=== PATIENT | female | born 1990 | race Caucasian/White ===

== ENCOUNTER 2016-07-13 16:41 | Emergency (ER) | payer OTHER ==
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
[2016-07-13 19:03] VITALS: BP 130/78
== END 2016-07-13 18:29 | disposition home or self-care (01) ==
LOC: ER 16:41
DX: F07.81 Postconcussional syndrome (principal); R51 Headache; R42 Dizziness and giddiness
CPT/HCPCS: 70450; 99284

== ENCOUNTER → 2018-03-30 | Outpatient (CLI) | payer SELFPAY ==
--- NOTE | 2018-03-30 13:37 | RADIOLOGY REPORT (SQ) ---
EXAM DESCRIPTION: U/S [id number] TRNABD 1GES W/ODOP COMPLETED DATE/TIME: 03/30/2018 1:24 pm REASON FOR STUDY: Z34.02 ENCNTR FOR SUPRVSN OF NORMAL FIRST PREG, FIRST TRIMESTER Z34.02 ENCNTR FOR SUPRVSN OF NORMAL FIRST PREG, SECOND TRIME COMPARISON: None. TECHNIQUE: Transabdominal static and realtime grayscale images acquired of the pelvis. Additional se lected spectral and color Doppler images recorded. All images stored on PACs. bHCG: Not available CLINICAL DATES: Not available LIMITATIONS: None. FINDINGS: FETUS: Single Living intrauterine . ULTRASOUND EGA: 9 weeks 3 days ULTRASOUND JESI: 10/30/2018 EFW: Not applicable less than 20 weeks. CRL: 2.6 cm FHR: 182 beats per minute. SURVEY: Too early to assess. AMNIOTIC FLUID: Adequate amount. PLACENTA: Not yet developed due to early gestation. SUBCHORIONIC BLEED: No SIZE OF BLEED: Not applicable. UTERUS: No masses. No anomalies. Uterus is 11 x 10 x 8 cm in size CERVICAL LENGTH: 2.9 cm Closed. RIGHT ADNEXA: Normal ovary with normal vascular flow. 3.5 x 1.8 x 1.6 cm in size. No adnexal free fluid. No adnexal masses. LEFT ADNEXA: Normal ovary with normal vascular flow. 4.7 x 3.2 x 2.5 cm in size No adnexal free fluid. No adnexal masses. FREE FLUID: None. OTHER: No other significant finding. IMPRESSION: LIVING INTRAUTERINE . EGA 9 weeks 3 days Trimester of : First - 0 to 13 weeks. TECHNICAL DOCUMENTATION: JOB ID: [id number] [email or web address]- All Rights Reserved rev-08/22 Reading location - IP/workstation name: [facility]
== END ==
LOC: RAD 14:04
PROVIDERS: ATTEND Nurse Practitioner
DX: Z34.02 Encounter for supervision of normal first pregnancy, second trimester (principal)
CPT/HCPCS: 76801

== ENCOUNTER → 2018-07-20 | Outpatient (CLI) | payer SELFPAY ==
--- NOTE | 2018-07-20 15:47 | RADIOLOGY REPORT (SQ) ---
EXAM DESCRIPTION: U/S OB 14+ TRNABD 1GES W/O DOP COMPLETED DATE/TIME: 07/20/2018 3:07 pm REASON FOR STUDY: Z34.02 ENCNTR FOR SUPRVSN OF NORMAL FIRST PREG, SECOND TRIMESTER Z34.02 ENCNTR FO R SUPRVSN OF NORMAL FIRST PREG, SECOND TRIME 25 weeks 3 days. COMPARISON: 03/30/2018 TECHNIQUE: Static and Dynamic grayscale imaging performed of gravid uterus using transabdominal appr oac. Additional selected color Doppler and spectral images recorded. All stored on PACS. LIMITATIONS: None. FINDINGS: FETUSES SEEN:1 EGA: 25 weeks 3 days. Calculated using BPD,FL,HC,AC documented on images. No discrepancy with clinic al dates. JESI: 10/30/2018. EFW: 788 grams PERCENTILE: 43rd YUNG: 15.4 cm PLACENTA: Anterior. GRADE: I PRESENTATION: Cephalic. ANATOMY: HEART RATE: 145 beats per minute. FOUR CHAMBER HEART: Visualized. THREE VESSEL CORD: Yes. CORD INSERTION: Visualized. KIDNEYS AND BLADDER: Visualized. Appear normal. STOMACH: Visualized. Appears normal. SPINE: Normal as visualized. BRAIN AND LATERAL VENTRICLES: Visualized. Appear normal. OTHER: No other significant finding. MATERNAL ADNEXA: Maternal ovaries not visualized. CERVICAL LENGTH: 6.4 cm. Closed. OTHER: No other significant finding. IMPRESSION: LIVING INTRAUTERINE . ESTIMATED GESTATIONAL AGE 25 weeks 3 days. NO VISUALIZED ANOMALIES. Trimester of : Second trimester - 13 weeks 1 day to 27 weeks 6 days. TECHNICAL DOCUMENTATION: JOB ID: [id number] [email or web address]- All Rights Reserved Reading location - IP/workstation name: [email or web address]
== END ==
LOC: RAD 14:23
PROVIDERS: ATTEND Midwife
DX: Z34.02 Encounter for supervision of normal first pregnancy, second trimester (principal)
CPT/HCPCS: 76805

== ENCOUNTER 2018-09-14 20:09 | Outpatient (CLI) | payer MEDICAID ==
[2018-09-14 20:59] LABS: APPEARANCE,URINE SLIGHTLY-CLOUDY; BILIRUBIN,URINE NEGATIVE (NEGATIVE); COLOR,URINE YELLOW; GLUCOSE, URINE NEGATIVE (NEGATIVE); KETONES,URINE NEGATIVE (NEGATIVE); LEUKOCYTE ESTERASE,URINE TRACE (NEGATIVE); NITRITE,URINE NEGATIVE (NEGATIVE); PROTEIN,URINE NEGATIVE (NEGATIVE); URINE SPECIFIC GRAVITY 1.012; UROBILINOGEN,URINE NEGATIVE mg/dL (<2.0)
[2018-09-14 21:13] LABS: URINE AMPHETAMINES SCREEN NEGATIVE; URINE BARBITURATES SCREEN NEGATIVE; URINE BENZODIAZEPINES SCREEN NEGATIVE; URINE COCAINE SCREEN NEGATIVE; URINE MARIJUANA (THC) SCREEN NEGATIVE; URINE METHADONE SCREEN NEGATIVE; URINE PHENCYCLIDINE SCREEN NEGATIVE
== END 2018-09-14 22:02 | disposition home or self-care (01) ==
LOC: LC 20:09
PROVIDERS: ATTEND Obstetrics & Gynecology Gynecology
PROC: 4A1HXCZ Monitoring of Products of Conception, Cardiac Rate, External Approach (ICD-10-PCS; principal; 2018-09-14)
DX: O26.893 Other specified pregnancy related conditions, third trimester (principal); R10.9 Unspecified abdominal pain; Z3A.33 33 weeks gestation of pregnancy
CPT/HCPCS: 80307; 81001

== ENCOUNTER 2018-09-23 20:11 | Outpatient (CLI) | payer MEDICAID ==
[2018-09-23 21:29] LABS: APPEARANCE,URINE TURBID; BILIRUBIN,URINE NEGATIVE (NEGATIVE); COLOR,URINE YELLOW; GLUCOSE, URINE NEGATIVE (NEGATIVE); KETONES,URINE 80 mg/dL (NEGATIVE); LEUKOCYTE ESTERASE,URINE LARGE (NEGATIVE); NITRITE,URINE NEGATIVE (NEGATIVE); PROTEIN,URINE NEGATIVE (NEGATIVE); URINE SPECIFIC GRAVITY 1.013; UROBILINOGEN,URINE NEGATIVE mg/dL (<2.0)
[2018-09-23 21:35] LABS: URINE AMPHETAMINES SCREEN NEGATIVE; URINE BARBITURATES SCREEN NEGATIVE; URINE BENZODIAZEPINES SCREEN NEGATIVE; URINE COCAINE SCREEN NEGATIVE; URINE MARIJUANA (THC) SCREEN NEGATIVE; URINE METHADONE SCREEN NEGATIVE; URINE PHENCYCLIDINE SCREEN NEGATIVE
[2018-09-23] MEDS ORDERED: HYDROXYZINE PAMOATE 50 MG CAPSULE ONE (21:50)
[2018-09-23] MEDS ORDERED: HYDROXYZINE PAMOATE 50 MG CAPSULE PO ONE (21:55)
[2018-09-23] MEDS ORDERED: MAG HYDROX/AL HYDROX/SIMETH SUSP 30 ML UDCUP ONE (22:19)
--- NOTE | 2018-09-24 02:31 | Non Stress Test Report ---
Non Stress Test Datetime Report Generated by CPN: 09/24/2018 02:31 DEMOGRAPHIC EGA NST: 34.5 INDICATION Indication for Study: Other Indication for Study (NST) Other: LC MONITORING Monitor Explained: Monitor Explained; Test Explained; Patient Verbalized Understanding; Other Monitor Explained Other: Pt mother Time on Monitor: 09/23/2018 20:40 Time off Monitor: 09/23/2018 23:10 NST Duration: 150 NST INTERVENTIONS NST Interventions: PO Hydration Physician Notified NST: Linares (Annotations: Data stored by N on behalf of user) BABY A: [id number] BABY A Movement : Present Contraction Frequency : irreg FHR Baseline : 140 Accelerations : 15X15 Decelerations : None Variability : Moderate 6-25bpm NST Review: Meets Criteria for Reactive NST NST Review and Verified By : Teresa Greene RN NST Results: Reactive NST REPORT Report Trigger: Send Report
== END 2018-09-23 23:15 | disposition home or self-care (01) ==
LOC: LC 20:11
PROVIDERS: ATTEND Student in an Organized Health Care Education/Training Program
PROC: 4A1HXCZ Monitoring of Products of Conception, Cardiac Rate, External Approach (ICD-10-PCS; principal; 2018-09-23)
DX: O47.03 False labor before 37 completed weeks of gestation, third trimester (principal); Z3A.34 34 weeks gestation of pregnancy
CPT/HCPCS: 59025; 81001; 80307; J3490 ×2

== ENCOUNTER 2018-10-14 23:17 | Outpatient (CLI) | payer MEDICAID ==
[2018-10-15 00:01] LABS: APPEARANCE,URINE SLIGHTLY-CLOUDY; BILIRUBIN,URINE NEGATIVE (NEGATIVE); COLOR,URINE YELLOW; GLUCOSE, URINE NEGATIVE (NEGATIVE); KETONES,URINE NEGATIVE (NEGATIVE); LEUKOCYTE ESTERASE,URINE TRACE (NEGATIVE); NITRITE,URINE NEGATIVE (NEGATIVE); PROTEIN,URINE NEGATIVE (NEGATIVE); URINE SPECIFIC GRAVITY 1.012; UROBILINOGEN,URINE NEGATIVE mg/dL (<2.0)
[2018-10-15 00:19] LABS: URINE AMPHETAMINES SCREEN NEGATIVE; URINE BARBITURATES SCREEN NEGATIVE; URINE BENZODIAZEPINES SCREEN NEGATIVE; URINE COCAINE SCREEN NEGATIVE; URINE MARIJUANA (THC) SCREEN NEGATIVE; URINE METHADONE SCREEN NEGATIVE; URINE PHENCYCLIDINE SCREEN NEGATIVE
--- NOTE | 2018-10-15 00:37 | Non Stress Test Report ---
Non Stress Test Datetime Report Generated by CPN: 10/15/2018 00:37 DEMOGRAPHIC EGA NST: 37.5 INDICATION Indication for Study: Ordered by Provider VITAL SIGNS Temperature - NST: 97.7 Pulse - NST: 60 RESP - NST: 17 NBPSYS NST: 154 NBPDIA NST: 76 MONITORING Monitor Explained: Monitor Explained; Test Explained; Patient Verbalized Understanding Time on Monitor: 10/14/2018 23:40 Time off Monitor: 10/15/2018 00:23 NST Duration: 43 NST INTERVENTIONS NST Interventions: PO Hydration Physician Notified NST: Dr. Linares BABY A: [id number] BABY A Movement : Present Contraction Frequency : x 2 FHR Baseline : 135 Accelerations : 15X15 Decelerations : None Variability : Moderate 6-25bpm NST Review: Meets Criteria for Reactive NST NST Review and Verified By : Cindy Aguilera RN NST Results: Reactive NST REPORT Report Trigger: Send Report
== END 2018-10-15 00:33 | disposition home or self-care (01) ==
LOC: LC 23:17
PROVIDERS: ATTEND Student in an Organized Health Care Education/Training Program
PROC: 4A1HXCZ Monitoring of Products of Conception, Cardiac Rate, External Approach (ICD-10-PCS; principal; 2018-10-14)
DX: O47.1 False labor at or after 37 completed weeks of gestation (principal); Z3A.37 37 weeks gestation of pregnancy
CPT/HCPCS: 59025; 80307; 81005; 84112

== ENCOUNTER 2018-10-27 16:32 | Inpatient (IN) | payer MEDICAID ==
--- NOTE | 2018-10-27 17:50 | Non Stress Test Report ---
Non Stress Test Datetime Report Generated by CPN: 10/27/2018 17:50 DEMOGRAPHIC EGA NST: 39.4 INDICATION Indication for Study: Ordered by Provider VITAL SIGNS Temperature - NST: 98.0 MONITORING Monitor Explained: Monitor Explained; Test Explained; Patient Verbalized Understanding Time on Monitor: 10/27/2018 16:42 Time off Monitor: 10/27/2018 17:13 NST Duration: 31 NST INTERVENTIONS NST Interventions: IV Fluids; Reposition Patient Physician Notified NST: Dr. younger BABY A: [id number] BABY A Movement : Present Contraction Frequency : x2 FHR Baseline : 145 Accelerations : 15X15 Decelerations : Variable Variability : Moderate 6-25bpm NST Review: Meets Criteria for Reactive NST NST Review and Verified By : Blanca Wilson RN NSAbram Results: Reactive NST REPORT Report Trigger: Send Report
[2018-10-27 17:58] LABS: APPEARANCE,URINE SLIGHTLY-CLOUDY; BILIRUBIN,URINE NEGATIVE (NEGATIVE); COLOR,URINE YELLOW; GLUCOSE, URINE 50 mg/dL (NEGATIVE); KETONES,URINE NEGATIVE (NEGATIVE); LEUKOCYTE ESTERASE,URINE SMALL (NEGATIVE); NITRITE,URINE NEGATIVE (NEGATIVE); PROTEIN,URINE 30 mg/dL (NEGATIVE); URINE SPECIFIC GRAVITY 1.025; UROBILINOGEN,URINE NEGATIVE mg/dL (<2.0)
[2018-10-27 18:24] LABS: HEMATOCRIT 32.9 % (36.0-47.0); HEMOGLOBIN 10.5 g/dL (12.0-15.5); MEAN CORPUSCULAR HEMOGLOBIN 22.9 pg (27.0-33.4); MEAN CORPUSCULAR VOLUME 71 fl (80-97); PLATELET COUNT 193 10^3/uL (150-450); RED BLOOD COUNT 4.61 10^6/uL (3.72-5.28); RED CELL DISTRIBUTION WIDTH 17.9 % (11.5-14.0); WHITE BLOOD COUNT 6.7 10^3/uL (4.0-10.5)
[2018-10-27 18:45] LABS: ALANINE AMINOTRANSFERASE 22 U/L (9-52); ALBUMIN 2.9 g/dL (3.5-5.0); ALKALINE PHOSPHATASE 311 U/L (38-126); ANION GAP 8 (5-19); ASPARTATE AMINO TRANSFERASE 26 U/L (14-36); BILIRUBIN,DIRECT 0.3 mg/dL (0.0-0.4); BILIRUBIN,TOTAL 0.4 mg/dL (0.2-1.3); BLOOD UREA NITROGEN 11 mg/dL (7-20); CALCIUM 9.3 mg/dL (8.4-10.2); CARBON DIOXIDE 22 mmol/L (22-30); CHLORIDE 107 mmol/L (98-107); GLUCOSE 96 mg/dL (75-110); POTASSIUM 3.9 mmol/L (3.6-5.0); TOTAL PROTEIN 5.4 g/dL (6.3-8.2); URIC ACID 4.8 mg/dL (2.5-6.2)
[2018-10-27 18:48] LABS: UR PRO/CREAT RATIO RESULT 0.1 mg/mg (0.0-0.2); URINE CREATININE 173.8 mg/dL (16-327)
[2018-10-27] MEDS ORDERED: RINGERS SOLUTION,LACTATED 1,000 ML IV PRN ×2 (18:50→20:21)
[2018-10-27] MEDS ORDERED: NIFEDIPINE 30 MG TAB.ER.24 PO ONE ×2 (18:52→18:53)
[2018-10-27 19:01] LABS: URINE AMPHETAMINES SCREEN NEGATIVE; URINE BARBITURATES SCREEN NEGATIVE; URINE BENZODIAZEPINES SCREEN NEGATIVE; URINE COCAINE SCREEN NEGATIVE; URINE MARIJUANA (THC) SCREEN NEGATIVE; URINE METHADONE SCREEN NEGATIVE; URINE PHENCYCLIDINE SCREEN NEGATIVE
[2018-10-27] MEDS ORDERED: RINGERS SOLUTION,LACTATED 1,000 ML IV ONE (20:10)
[2018-10-27] MEDS ORDERED: OXYTOCIN/NORMAL SALINE 20 UNIT/1,000 ML RTUINJ ONE (20:14)
[2018-10-27] MEDS ORDERED: LIDOCAINE 1% INJ-PF (10 MG/ML) 30 ML SDV ONE (20:14)
[2018-10-27] MEDS ORDERED: MISOPROSTOL 0.2 MG TABLET ONE (20:14)
[2018-10-27] MEDS ORDERED: OXYTOCIN 10 UNIT/ML VIAL ONE (20:14)
--- NOTE | 2018-10-27 20:18 | Admission Physical ---
Datetime Report Generated by CPN: 10/27/2018 20:17 CURRENT ADMISSION Indication for Induction: Gestational HTN Indication for Induction- Other: Labile elevated BP Admit Impression : Term, Intrauterine ; No Active Labor; Induction of Labor Admit Plan: Admit to Unit; Initiate Labor Induction Protocol ALLERGIES Medication Allergies: Yes Medication Allergies: Penicillins (09/14/2018) Latex: No Latex Allergies OBSTETRICAL HISTORY EDC: 10/30/2018 00:00 : 1 Para: 0 Term: 0 : 0 IAB: 0 Ectopic: 0 Livin Cesareans: 0 VBACs: 0 Multiple Births: 0 Gestational Diabetes: No Rh Sensitization: No Incompetent Cervix: No SEA: No Infertility: No ART Treatment: No Uterine Anomaly: No IUGR: No Hx Previous C/S: No Macrosomia: No Hx Loss/Stillborn: No PIH: No Hx : No Placenta Previa/Abruption: No Depression/PP Depression: No PTL/PROM: No Post Hemorrhage: No Current Procedures: Ultrasound Obstetrical History Comments: 200mg Prometrium for cervical lenght 2.2cm SEE RECORDS Alcohol: No Marijuana : No Cocaine: No Other Illicit Drugs: No Cigarettes: Never Smoker. [id number] MEDICAL HISTORY Diabetes: No Blood Transfusion: No Pulmonary Disease (Asthma, TB): No Breast Disease: No Hypertension: No Sagger Maker Surgery: No Heart Disease: No Hosp/Surgery: No Autoimmune Disorder: No Anesthetic Complications: No Kidney Disease: No Abnormal Pap Smear: No Neuro/Epilepsy: No Psychiatric Disorders: No Other Medical Diseases: No Hepatitis/Liver Disease: No Significant Family History: No Varicosities/Phlebitis: No Trauma/Violence : No Thyroid Dysfunction: No INFECTIOUS HISTORY Gonorrhea: No Genital Herpes: No Chlamydia: No Tuberculosis: No Syphilis: No Hepatitis: No HIV/AIDS Exposure: No Rash or Viral Illness: No HPV: No PHYSICAL EXAM General: Normal HEENT: Normal Neurologic: Normal Thyroid: Normal Heart: Normal Lungs: Normal Breast: Normal Back: Normal Abdomen: Normal Genitourinary Exam: Normal Extremities: Normal DTRs: Normal Pelvic Type: Adequate Vital Signs: Reviewed VAGINAL EXAM Dilatation: 1 Effacement: 50 Station: -3 Contraction Comments: irregular MEMBRANES Membranes: Intact FETUS A Monitoring: External US FHR- Baseline: 130s Variability: Moderate 6-25bpm Accelerations: 15X15 FHR Category: Category I Admit Comment: Pt here today for a PIH work up secondary to elevated BP in the office. Her pre-e work up was negative, therefore she has a dx of GHTN. I gave her procardia and she still has some elevated BPs. I will keep the pt for IOL. Her cervix is 1 cm, therefpre I will place a cervidil for cervical ripening. FHTs reactive. PLANS FOR LABOR AND DELIVERY Labor and Delivery: None Pain Management: Natural Feeding Preference: Both Benefit of Breast Feed Discussed: Yes Circumcision: Yes INFORMED CONSENT Signature: with User ID: [email or web address]
[2018-10-27] MEDS ORDERED: MAG HYDROX/AL HYDROX/SIMETH SUSP 30 ML UDCUP PO PRN (20:21)
[2018-10-27] MEDS ORDERED: DINOPROSTONE 10 MG VAGINAL INSERT.SR PV ONE (20:21)
[2018-10-27] MEDS ORDERED: OXYTOCIN/NORMAL SALINE 20 UNIT/1,000 ML RTUINJ IV PRN (20:21)
[2018-10-27] MEDS ORDERED: RINGERS SOLUTION,LACTATED 300 ML IV ONE (20:21)
[2018-10-27] MEDS ORDERED: ACETAMINOPHEN 325 MG TABLET PO PRN (20:21)
[2018-10-27] MEDS ORDERED: ZOLPIDEM TARTRATE 5 MG TABLET PO PRN (20:21)
[2018-10-27] MEDS ORDERED: DINOPROSTONE 10 MG VAGINAL INSERT.SR ONE (20:44)
[2018-10-27 21:10] LABS: ABSOLUTE EOSINOPHILS # (AUTO) 0.1 10^3/uL (0.0-0.6); ABSOLUTE LYMPHOCYTES (AUTO) 1.5 10^3/uL (0.5-4.7); ABSOLUTE MONOCYTES (AUTO) 0.6 10^3/uL (0.1-1.4); ABSOLUTE NEUT (AUTO) 4.5 10^3/uL (1.7-8.2); BASOPHILS % (AUTO) 0.6 % (0-2); EOSINOPHILS % (AUTO) 0.8 % (0-6); LYMPHOCYTES % (AUTO) 22.3 % (13-45); MONOCYTES % (AUTO) 8.9 % (3-13); SEGMENTED NEUTROPHILS % (AUTO) 67.4 % (42-78); TOTAL CELLS COUNTED % (AUTO) 100 %
[2018-10-27] MEDS ORDERED: ACETAMINOPHEN 325 MG TABLET ONE (22:46)
[2018-10-27] MEDS ORDERED: ZOLPIDEM TARTRATE 5 MG TABLET ONE (22:47)
[2018-10-27] MEDS ORDERED: ZOLPIDEM TARTRATE 5 MG TABLET PO ONE (23:15)
[2018-10-27] MEDS ORDERED: ACETAMINOPHEN 325 MG TABLET PO ONE (23:15)
[2018-10-28] MEDS ORDERED: PROMETHAZINE HCL INJ 25 MG/1 ML VIAL ONE (02:35)
[2018-10-28] MEDS ORDERED: NALBUPHINE HCL INJ 10 MG/1 ML AMPULE ONE (02:35)
[2018-10-28] MEDS ORDERED: PROMETHAZINE HCL INJ 25 MG/1 ML VIAL IV ONE (03:00)
[2018-10-28] MEDS ORDERED: NALBUPHINE HCL INJ 10 MG/1 ML AMPULE INJ ONE (03:00)
[2018-10-28] MEDS ORDERED: LIDOCAINE 1% INJ-PF (10 MG/ML) 30 ML SDV ONE (07:52)
[2018-10-28] MEDS ORDERED: BENZOCAINE/MENTHOL AEROSOL SPRAY 56 ML TOP PRN (08:26)
[2018-10-28] MEDS ORDERED: ACETAMINOPHEN WITH CODEINE #3 TABLET PO PRN (08:26)
[2018-10-28] MEDS ORDERED: ZOLPIDEM TARTRATE 5 MG TABLET PO PRN (08:26)
[2018-10-28] MEDS ORDERED: OXYTOCIN/NORMAL SALINE 20 UNIT/1,000 ML RTUINJ IV PRN (08:26)
[2018-10-28] MEDS ORDERED: DIPH/PERTUSS(ACELL)/TETANUS VAC/PF 0.5 ML SYR (>=10YO) IM PRN (08:26)
[2018-10-28] MEDS ORDERED: DIBUCAINE 1% OINTMENT 56 GM TP PRN (08:26)
--- NOTE | 2018-10-28 09:12 | Warning Signs in Babies ---
VOD Warning Signs Datetime Report Generated by [facility]: 10/28/2018 09:12 VOD#608 -Warning Signs in Babies: Viewed with Parent(s)/Family (09/14/2018 20:16:Briseyda Bravo RN)
--- NOTE | 2018-10-28 09:13 | Warning Signs in Babies ---
VOD Warning Signs Datetime Report Generated by [facility]: 10/28/2018 09:13 VOD#608 -Warning Signs in Babies: Viewed with Parent(s)/Family (10/28/2018 09:12:Briseyda Bravo RN)
[2018-10-28] MEDS ORDERED: PRENATAL VITAMIN W DHA CAPSULE PO ONE (10:05)
[2018-10-28] MEDS ORDERED: DOCUSATE SODIUM 100 MG CAPSULE ONE (10:05)
[2018-10-28] MEDS ORDERED: SENNOSIDES/DOCUSATE 8.6-50 MG 1 EACH TABLET ONE (10:05)
[2018-10-28] MEDS ORDERED: FERROUS SULFATE 325 MG TABLET PO ONE (10:06)
[2018-10-28] MEDS: DOCUSATE SODIUM 100 MG CAPSULE PO SCH ×2 (10:07→18:20)
[2018-10-28] MEDS: FERROUS SULFATE 325 MG TABLET PO SCH ×2 (10:07→18:20)
[2018-10-28] MEDS: PRENATAL VITAMIN W DHA CAPSULE PO SCH (10:07)
[2018-10-28] MEDS: SENNOSIDES/DOCUSATE 8.6-50 MG 1 EACH TABLET PO SCH (10:07)
[2018-10-28] MEDS ORDERED: ACETAMINOPHEN WITH CODEINE #3 TABLET ONE (10:10)
[2018-10-28] MEDS: ACETAMINOPHEN WITH CODEINE #3 TABLET PO PRN ×2 (10:11→18:19)
[2018-10-28] MEDS ORDERED: IRON SUCROSE COMPLEX INJ/PF 100 MG/5 ML SDV IV ONE (12:00)
[2018-10-28] MEDS ORDERED: IBUPROFEN 800 MG TABLET ONE (14:17)
[2018-10-28] MEDS: IBUPROFEN 800 MG TABLET PO SCH ×2 (14:18→21:03)
--- NOTE | 2018-10-28 17:28 | Delivery Summary ---
Del Sum A-C Datetime Report Generated by CPN: 10/28/2018 17:28 DELIVERY PERSONNEL DELIVERY PERSONNEL: [id number] Delivery Doctor:: Candice Martinez MD Labor and Delivery Nurse:: Mohsen Narayanan RNcreative art director Nurse:: Briseyda Bravo RN Nursery Nurse:: Brigid Little RN Nursery Nurse:: MERRICK Bowen/GUEST SERVICES REPRESENTATIVE: Chandni Lombardo CST Additional Personnel: : Dr. Karol Linares MATERNAL INFORMATION Delivery Anesthesia: Pudendal Medications During Delivery: lidocaine 1% Medications After Delivery: Pitocin Bolus-Please Comment Meds After Delivery Comment: pitocin 20U/1000 ml NS Estimated Blood Loss (ml): 300 Delivery QBL: 300 Maternal Complications: None Provider Comments: of a viable male at 0747 w/ BESS w/ a nuchal cord x 1 presentation; APGARS 8, 9; 2nd degree midline vaginal and right periurethral lacs LABOR SUMMARY EDC: 10/30/2018 00:00 No. Babies in Womb: 1 Attempted: No Labor Anesthesia: None LABOR INFORMATION Reason for Induction: Gestational Hypertension Onset of Labor: 10/28/2018 06:55 Complete Dilatation: 10/28/2018 07:26 Cervical Ripening Agents: Cervidil Group B Beta Strep: negative Antibiotics # of Doses: n/a Antibiotics Time of Last Dose: n/a Name of Antibiotic Given: n/a Steroids Given: None Reason Steroids Not Administered: Not Applicable MEMBRANES Membranes Rupture Method: Artificial Rupture of Membranes: 10/28/2018 07:04 Length of Rupture (hr): 0.72 Amniotic Fluid Color: Clear Amniotic Fluid Amount: Small Amniotic Fluid Odor: None STAGES OF LABOR Stage 1 hr: 0 Stage 1 min: 31 Stage 2 hr: 0 Stage 2 min: 21 Stage 3 hr: 0 Stage 3 min: 5 Total Time in Labor hr: 0 Total Time in Labor min: 57 VAGINAL DELIVERY Episiotomy: None Laceration #1: Vaginal Laceration Extension #1: Second Degree Laceration #2: Periurethral Laceration Extension #2: Second Degree Laceration Repair: Yes Laceration Repair Note: 2nd Degree Midline vaginal and 2nd degree Right periurethral lacs repaired with 2-0 Vicryl Sponge Count Correct: Yes Sharps Count Correct: Yes CSECTION DELIVERY Primary Indication: N/A Secondary Indication: N/A CSection Incidence: N/A Labor: N/A Elective: N/A CSection Incision: N/A Uterine Closure: N/A BABY A INFORMATION Infant Delivery Date/Time: 10/28/2018 07:47 Method of Delivery: Vaginal Born in Route : No : N/A Forceps: N/A Vacuum Extraction: N/A Shoulder Dystocia : No PRESENTATION/POSITION BABY A Presentation: Cephalic Cephalic Presentation: Vertex Vertex Position: Right Occipital Anterior Breech Presentation: N/A PLACENTA INFORMATION BABY A Placenta Delivery Time : 10/28/2018 07:52 Placenta Method of Delivery: Spontaneous Placenta Status: Delivered SCORES BABY A Heart Rate 1 min: >100 bpm Resp Effort 1 min: Good Cry Reflex Irritability 1 min: Cough or Sneeze or Pulls Away Muscle Tone 1 min: Active Motion Color 1 min: Blue/Pale Resuscitation Effort 1 min: Tactile Stimulation SCORE 1 MIN: 8 Heart Rate 5 min: >100 bpm Resp Effort 5 min: Good Cry Reflex Irritability 5 min: Cough or Sneeze or Pulls Away Muscle Tone 5 min: Active Motion Color 5 min: Body [place], Extremities Blue Resuscitation Effort 5 min: Tactile Stimulation SCORE 5 MIN: 9 INFORMATION BABY A Gestational Age at Delivery: 39.5 Gestational Status: Full Term- 39- 40.6 Weeks Infant Outcome : Liveborn Condition : Stable Infant Sex: Male IDENTIFICATION BABY A Infant Verification Date/Time: 10/28/2018 08:21 ID Band Number: [id number] Mother's Name Verified: Yes Infant RN Verifying : Blanca Kumar RN and Keron Narayanan RN WEIGHT/LENGTH BABY A Infant Birthweight (gm): 3892 Weight (lb): 8 Weight (oz): 9 Length (in): 21.50 Length (cm): 54.61 CORD INFORMATION BABY A No. Cord Vessels: 3 Nuchal Cord : Around Neck x1, Loose Cord Blood Taken: Yes-For Storage (Mom's Blood type +) Infant Suction: Mouth ASSESSMENT BABY A Infant Complications: None Physical Findings at Delivery: Within Normal Limits Infant Respirations: Appears Normal Skin to Skin: Yes Tearer/ALS Called : No Infant Care By: J. Field, RN Transferred To: Remains with Mother BABY B INFORMATION : N/A SIGNATURES Signature: with User ID: [email or web address]
[2018-10-28] MEDS: NIFEDIPINE 30 MG TAB.ER.24 PO SCH (18:19)
[2018-10-28 18:32] LABS: ABSOLUTE BASOPHILS # (AUTO) 0.1 10^3/uL (0.0-0.2); ABSOLUTE LYMPHOCYTES (AUTO) 2.4 10^3/uL (0.5-4.7); ABSOLUTE MONOCYTES (AUTO) 1.4 10^3/uL (0.1-1.4); ABSOLUTE NEUT (AUTO) 10.6 10^3/uL (1.7-8.2); BASOPHILS % (AUTO) 0.4 % (0-2); EOSINOPHILS % (AUTO) 0.1 % (0-6); HEMATOCRIT 32.6 % (36.0-47.0); HEMOGLOBIN 10.4 g/dL (12.0-15.5); LYMPHOCYTES % (AUTO) 16.8 % (13-45); MEAN CORPUSCULAR HEMOGLOBIN 22.6 pg (27.0-33.4); MEAN CORPUSCULAR HGB CONC 31.7 g/dL (32.0-36.0); MEAN CORPUSCULAR VOLUME 71 fl (80-97); MONOCYTES % (AUTO) 9.6 % (3-13); PLATELET COUNT 244 10^3/uL (150-450); RED BLOOD COUNT 4.59 10^6/uL (3.72-5.28); RED CELL DISTRIBUTION WIDTH 18.1 % (11.5-14.0); SEGMENTED NEUTROPHILS % (AUTO) 73.1 % (42-78); TOTAL CELLS COUNTED % (AUTO) 100 %; WHITE BLOOD COUNT 14.4 10^3/uL (4.0-10.5)
[2018-10-28 18:48] LABS: ALANINE AMINOTRANSFERASE 24 U/L (9-52); ALKALINE PHOSPHATASE 290 U/L (38-126); ANION GAP 6 (5-19); ASPARTATE AMINO TRANSFERASE 40 U/L (14-36); BILIRUBIN,DIRECT 0.2 mg/dL (0.0-0.4); BILIRUBIN,TOTAL 0.4 mg/dL (0.2-1.3); BLOOD UREA NITROGEN 10 mg/dL (7-20); CALCIUM 9.1 mg/dL (8.4-10.2); CARBON DIOXIDE 24 mmol/L (22-30); CHLORIDE 106 mmol/L (98-107); GLUCOSE 119 mg/dL (75-110); POTASSIUM 4.2 mmol/L (3.6-5.0); TOTAL PROTEIN 5.7 g/dL (6.3-8.2); URIC ACID 4.8 mg/dL (2.5-6.2)
[2018-10-28] MEDS: FUROSEMIDE 20 MG TABLET PO SCH (19:07)
[2018-10-28] MEDS ORDERED: HYDRALAZINE HCL INJ/PF 20 MG/1 ML SDV ONE (20:11)
[2018-10-28] MEDS ORDERED: HYDRALAZINE HCL INJ/PF 20 MG/1 ML SDV IV ONE (20:30)
[2018-10-29] MEDS: IBUPROFEN 800 MG TABLET PO SCH ×3 (06:18→22:24)
[2018-10-29 07:50] LABS: HEMATOCRIT 28.7 % (36.0-47.0); HEMOGLOBIN 9.3 g/dL (12.0-15.5); MEAN CORPUSCULAR HEMOGLOBIN 22.9 pg (27.0-33.4); MEAN CORPUSCULAR HGB CONC 32.2 g/dL (32.0-36.0); MEAN CORPUSCULAR VOLUME 71 fl (80-97); PLATELET COUNT 224 10^3/uL (150-450); RED BLOOD COUNT 4.04 10^6/uL (3.72-5.28); RED CELL DISTRIBUTION WIDTH 17.9 % (11.5-14.0); WHITE BLOOD COUNT 14.8 10^3/uL (4.0-10.5)
--- NOTE | 2018-10-29 08:45 | PDOC PROGRESS REPORT ---
Subjective-OB Progress Note for:: 10/29/18 Subjective: Denies sx PIH. Physical Exam (OB) Vital Signs: Temp Pulse Resp BP Pulse Ox 98.1 F 90 16 149/90 H 100 10/29/18 07:50 10/29/18 07:50 10/29/18 07:50 10/29/18 07:50 10/29/18 07:50 Intake & Output 10/28/18 10/29/18 10/30/18 06:59 06:59 06:59 Intake Total 1000 Balance 1000 Weight 72.3 kg - PIH/Pre-Eclampsia DTR's: 2 + Clonus: Negative Headache: Absent Epigastric Pain: No Visual Changes: No - Dressing Removed: No - Lochia Lochia Amount: Small 10-25 ml Lochia Color: Rubra/Red - Abdomen Description: Tender, Firm Hernia Present: No Bowel Sounds: Normoactive Flatus Presence: Present Stool: No Fundal Description: Firm Fundal Height: u/u - u/2 Objective-Diagnostic Laboratory: 10/29/18 07:30 10/28/18 18:08 10/28/18 10/28/18 10/29/18 18:06 18:08 07:30 WBC 14.4 H D 14.8 H RBC 4.59 4.04 Hgb 10.4 L 9.3 L Hct 32.6 L 28.7 L MCV 71 L 71 L MCH 22.6 L 22.9 L MCHC 31.7 L 32.2 RDW 18.1 H 17.9 H Plt Count 244 224 Seg Neutrophils % 73.1 Lymphocytes % 16.8 Monocytes % 9.6 Eosinophils % 0.1 Basophils % 0.4 Absolute Neutrophils 10.6 H Absolute Lymphocytes 2.4 Absolute Monocytes 1.4 Absolute Eosinophils 0.0 Absolute Basophils 0.1 Sodium 136.3 L Potassium 4.2 Chloride 106 Carbon Dioxide 24 Anion Gap 6 BUN 10 Creatinine 0.73 Est GFR ( Amer) > 60 Est GFR (Non-Af Amer) > 60 Glucose 119 H Uric Acid 4.8 Calcium 9.1 Total Bilirubin 0.4 AST 40 H ALT 24 Alkaline Phosphatase 290 H Total Protein 5.7 L Albumin 3.0 L
[2018-10-29] MEDS: DOCUSATE SODIUM 100 MG CAPSULE PO SCH ×2 (09:48→17:59)
[2018-10-29] MEDS: SENNOSIDES/DOCUSATE 8.6-50 MG 1 EACH TABLET PO SCH (09:48)
[2018-10-29] MEDS: FUROSEMIDE 20 MG TABLET PO SCH (09:48)
[2018-10-29] MEDS: PRENATAL VITAMIN W DHA CAPSULE PO SCH (09:49)
[2018-10-29] MEDS: FERROUS SULFATE 325 MG TABLET PO SCH ×2 (09:50→17:58)
[2018-10-29] MEDS: NIFEDIPINE 30 MG TAB.ER.24 PO SCH ×2 (09:50→17:57)
[2018-10-29] MEDS: ACETAMINOPHEN WITH CODEINE #3 TABLET PO PRN (18:01)
[2018-10-30] MEDS: IBUPROFEN 800 MG TABLET PO SCH (05:18)
[2018-10-30] MEDS: SENNOSIDES/DOCUSATE 8.6-50 MG 1 EACH TABLET PO SCH (09:11)
[2018-10-30] MEDS: FUROSEMIDE 20 MG TABLET PO SCH (09:11)
[2018-10-30] MEDS: DOCUSATE SODIUM 100 MG CAPSULE PO SCH (09:12)
[2018-10-30] MEDS: FERROUS SULFATE 325 MG TABLET PO SCH (09:12)
[2018-10-30] MEDS: PRENATAL VITAMIN W DHA CAPSULE PO SCH (09:12)
[2018-10-30] MEDS: NIFEDIPINE 30 MG TAB.ER.24 PO SCH (09:12)
--- NOTE | 2018-10-30 09:58 | PDOC PROGRESS REPORT ---
Subjective-OB Progress Note for:: 10/30/18 Subjective: Doing well, sleeping, hsb at BS, , voiding, scant bleeding, ready to go home Physical Exam (OB) Vital Signs: Temp Pulse Resp BP Pulse Ox 98.2 F 82 16 146/87 H 100 10/30/18 07:37 10/30/18 07:37 10/30/18 07:37 10/30/18 07:37 10/30/18 07:37 Intake & Output 10/29/18 10/30/18 10/31/18 06:59 06:59 06:59 Intake Total 1000 900 Balance 1000 900 - PIH/Pre-Eclampsia DTR's: 2 + Clonus: Negative Headache: Absent Epigastric Pain: No Visual Changes: No - Dressing Removed: No - Lochia Lochia Amount: Scant < 10 ml Lochia Color: Rubra/Red - Abdomen Description: Soft Hernia Present: No Fundal Description: Firm, Midline Fundal Height: u/u - u/2 Objective-Diagnostic Laboratory: 10/29/18 07:30 10/28/18 18:08 Assessment and Plan(PN) - Assessment and Plan (1) Iron deficiency anemia during Is this a current diagnosis for this admission?: Yes (2) Vaginal delivery Is this a current diagnosis for this admission?: Yes (3) Periurethral laceration, delivered, current hospitalization Is this a current diagnosis for this admission?: Yes (4) Obstetrical laceration, second degree Is this a current diagnosis for this admission?: Yes (5) Gestational hypertension Qualifiers: Trimester: second trimester Qualified Code(s): O13.2 - Gestational [-induced] hypertension without significant proteinuria, second trimester Is this a current diagnosis for this admission?: Yes - Time Spent with Patient Time with patient: Less than 15 minutes Medications reviewed and adjusted accordingly: Yes - Disposition Anticipated Discharge: Home Within: within 24 hours
--- NOTE | 2018-10-30 10:05 | PDOC DISCHARGE SUMMARY ---
Final Diagnosis Discharge Date: 10/30/18 - Final Diagnosis (1) Iron deficiency anemia during Is this a current diagnosis for this admission?: Yes (2) Vaginal delivery Is this a current diagnosis for this admission?: Yes (3) Periurethral laceration, delivered, current hospitalization Is this a current diagnosis for this admission?: Yes (4) Obstetrical laceration, second degree Is this a current diagnosis for this admission?: Yes (5) Gestational hypertension Is this a current diagnosis for this admission?: Yes Discharge Data - Discharge Medication Prescriptions: Nifedipine [Procardia XL 30 mg Tablet] 30 mg PO BID #30 tab.er.24 Home Medications: Ferrous Sulfate [Iron] 325 mg PO DAILY 09/14/18 Vits96/Iron Fum/Folic [ Tablet] 1 each PO DAILY 09/14/18 Nifedipine [Procardia XL 30 mg Tablet] 30 mg PO BID #30 tab.er.24 10/30/18 Vit/Dha [ Multi + Dha Capsule] 1 cap PO DAILY capsule 10/30/18 Gestational Age: 39.5 Reason(s) for Admission: Induction of Labor, PIH Procedures: NST, Ultrasound Intrapartum Procedure(s): Spontaneous Vaginal Delivery Complication(s): Laceration-Vaginal, Laceration-Periurethral Laceration-Degree: 2nd - Data Baby 1 Male at 1 minute: 8 at 5 minutes: 9 Weight: 3.884 kg Home with Mother: Yes Complications: No - Diagnosis Test Laboratory: Temp Pulse Resp BP Pulse Ox 98.2 F 82 16 146/87 H 100 10/30/18 07:37 10/30/18 07:37 10/30/18 07:37 10/30/18 07:37 10/30/18 07:37 10/27/18 10/27/18 10/28/18 17:21 18:00 18:06 RBC 4.61 4.59 Hgb 10.5 L 10.4 L Hct 32.9 L 32.6 L Urine Opiates Screen NEGATIVE 10/29/18 07:30 RBC 4.04 Hgb 9.3 L Hct 28.7 L Urine Opiates Screen - Discharge information/Instructions Discharge Activity: Activity As Tolerated, No Lifting Over 10 Pounds, No Lifting/Push/Pulling, Pelvic Rest Discharge Diet: As Tolerated, Regular Disposition: HOME, SELF-CARE Follow up with: [facility] in: 1, Weeks
[2018-10-30 10:14] VITALS: BP 147/87
== END 2018-10-30 14:15 | disposition home or self-care (01) | DRG 807 ==
LOC: LC 16:32 → LR 20:10 → 2N 10-28 17:00
PROVIDERS: ADMIT Obstetrics & Gynecology; ATTEND Obstetrics & Gynecology
PROC: 10E0XZZ Delivery of Products of Conception, External Approach (ICD-10-PCS; principal; 2018-10-28)
PROC: 0KQM0ZZ Repair Perineum Muscle, Open Approach (ICD-10-PCS; 2018-10-28)
PROC: 0UQMXZZ Repair Vulva, External Approach (ICD-10-PCS; 2018-10-28)
PROC: 10907ZC Drainage of Amniotic Fluid, Therapeutic from Products of Conception, Via Natural or Artificial Opening (ICD-10-PCS; 2018-10-28)
DX: O13.4 Gestational [pregnancy-induced] hypertension without significant proteinuria, complicating childbirth (principal); Z37.0 Single live birth; O99.02 Anemia complicating childbirth; D50.9 Iron deficiency anemia, unspecified; O71.82 Other specified trauma to perineum and vulva; O70.1 Second degree perineal laceration during delivery; O69.81X0 Labor and delivery complicated by cord around neck, without compression, not applicable or unspecified; Z88.0 Allergy status to penicillin; Z3A.39 39 weeks gestation of pregnancy
CPT/HCPCS: 36415; 80053; 80307; 81005; 82570; 83615; 84156; 84550; 85025; 85027; 86592; 86850; 86900; 86901; J0360; J1756; J2300; J2550; J2590; J3490